=== PATIENT | male | born 1995 | race Two or more races ===

== ENCOUNTER 2022-09-26 02:15 | Emergency (ER) | payer MEDICARE, MEDICAID, OTHER ==
[~2022-09-26] VITALS: Ht 165.1 cm; Wt 80.0 kg
[2022-09-26 02:33] VITALS: BP 136/72
[2022-09-26] MEDS ORDERED: IBUPROFEN 800 MG TAB PO ONE (04:15)
== END 2022-09-26 05:30 | disposition left against medical advice (07) ==
LOC: ER 02:15 → EDBD 02:15 → ER 05:30
DX: R07.89 Other chest pain (principal); V49.9XXA Car occupant (driver) (passenger) injured in unspecified traffic accident, initial encounter; Y93.89 Activity, other specified; Y92.89 Other specified places as the place of occurrence of the external cause; Y99.8 Other external cause status
CPT/HCPCS: 71045; 93005